=== PATIENT | female | born 1970 | race Caucasian/White ===

== ENCOUNTER → 2016-11-27 | Outpatient (CLI) | payer MEDICAID | LOC: FIMAGING 10:36 | PROVIDERS: ATTEND Physician Assistant | DX: M25.552 Pain in left hip (principal) ==

== ENCOUNTER → 2017-03-31 | Outpatient (CLI) | payer MEDICAID | LOC: BMCIMAGING 08:00 | PROVIDERS: ATTEND Nurse Practitioner Women's Health | DX: N93.9 Abnormal uterine and vaginal bleeding, unspecified (principal) ==